=== PATIENT | male | born 1950 | race Caucasian/White ===

== ENCOUNTER 2021-05-31 14:17 | Observation (INO) | payer OTHER, MEDICARE, MEDICAID ==
[~2021-05-31] VITALS: Ht 172.7 cm; Wt 84.5 kg
[2021-05-31 14:51] LABS: BASOPHILS # (AUTO) 0.1 X10'3 (0-0.2); EOSINOPHILS # (AUTO) 0.2 X10'3 (0-0.9); EOSINOPHILS % (AUTO) 3.7 % (0-6); HEMATOCRIT 50.5 % (42.0-52.0); LYMPHOCYTES # (AUTO) 1.5 X10'3 (1.1-4.8); LYMPHOCYTES % (AUTO) 23.5 % (21-51); MEAN CORPUSCULAR HEMOGLOBIN 32.5 PG (27.0-31.0); MEAN CORPUSCULAR HGB CONC 33.7 g/dL (33.0-36.5); MEAN CORPUSCULAR VOLUME 96.6 FL (78-98); MEAN PLATELET VOLUME 8.3 FL (7.4-10.4); MONOCYTES % (AUTO) 16.3 % (2-12); NEUTROPHILS # (AUTO) 3.5 X10'3 (1.8-7.7); NEUTROPHILS % (AUTO) 55.5 % (42-75); PLATELET COUNT 271 X10'3 (140-440); RED BLOOD COUNT 5.23 X10'6 (4.70-6.10); RED CELL DISTRIBUTION WIDTH 13.7 % (11.5-14.5); WHITE BLOOD COUNT 6.3 X10'3 (4.5-11.0)
[2021-05-31] MEDS ORDERED: nitroGLYCERIN-Tridil 50MG/D5W 250 ML IV ONE (14:54)
[2021-05-31] MEDS ORDERED: LIDOcaine 1% (10mg/ml)w/preservative injection 20ml MDV ONE (14:55)
[2021-05-31] MEDS ORDERED: iohexol 350 MG/ML 50ML vial IV ONE (14:55)
[2021-05-31] MEDS ORDERED: verapamil 2.5 mg/ml inj IV ONE (14:55)
[2021-05-31] MEDS ORDERED: heparin 1,000unit/ml 10ml vial 10 ML ONE (14:55)
[2021-05-31] MEDS ORDERED: fentaNYL/PF 50MCG/1 ML 2ML syringe ONE (14:55)
[2021-05-31] MEDS ORDERED: midazolam 1 mg/ML 2ml injection ONE (14:55)
[2021-05-31] MEDS ORDERED: iohexol 350 MG/1 ML 200ml bottle ONE (14:55)
[2021-05-31 15:09] LABS: ALANINE AMINOTRANSFERASE 42 U/L (12-78); ALBUMIN 3.4 G/DL (3.4-5.0); ALKALINE PHOSPHATASE 140 IU/L (46-116); ANION GAP 11 (8-16); ASPARTATE AMINO TRANSFERASE 20 U/L (10-37); BILIRUBIN,TOTAL 0.7 MG/DL (0.1-1.0); BLOOD UREA NITROGEN 10 MG/DL (7-18); BUN/CREATININE RATIO 10.2 (5.4-32.0); CALCIUM 8.7 MG/DL (8.5-10.1); CHLORIDE 106 MMOL/L (99-107); CREATININE 0.98 MG/DL (0.60-1.10); GLUCOSE 146 MG/DL (70-104); SODIUM 142 MMOL/L (135-145); TOTAL CARBON DIOXIDE 25.4 MMOL/L (24-32); TOTAL PROTEIN 6.8 G/DL (6.4-8.2); eGFR 76 ML/MIN
--- NOTE | 2021-05-31 16:00 | NUR ---
assumed care of pt. denies chest pain at this time, awaiting bed assignment upstairs. no distress.
[2021-05-31] MEDS ORDERED: mag hydrox/Alum hydrox/simeth 30ml oral suspension PO PRN (17:15)
[2021-05-31] MEDS ORDERED: ondansetron/PF 4mg/2ml inj IV PRN (17:15)
[2021-05-31] MEDS ORDERED: nitroGLYCERIN 0.4mg SUBLingual tab SL PRN (17:15)
[2021-05-31] MEDS ORDERED: magnesium hydroxide 30ml (MOM) UD suspension PO PRN (17:15)
[2021-05-31] MEDS ORDERED: acetaminophen 325mg tablet PO PRN ×2 (17:15)
[2021-05-31] MEDS ORDERED: ACET-1074 PO (17:37)
[2021-05-31] MEDS ORDERED: FLUT16SP2 BOTHNARES (17:37)
[2021-05-31] MEDS ORDERED: ASCO-10 PO (17:37)
[2021-05-31] MEDS ORDERED: CYAN500T71 PO (17:37)
[2021-05-31] MEDS ORDERED: CARB15DR EACHEYE (17:37)
[2021-05-31] MEDS ORDERED: SAW1CAPS PO (17:37)
[2021-05-31] MEDS ORDERED: MULT400T14 PO (17:37)
[2021-05-31] MEDS ORDERED: UBID100C7 PO (17:37)
[2021-05-31] MEDS ORDERED: LACT1CAP65 PO (17:37)
[2021-05-31] MEDS ORDERED: QUE9P PO (17:37)
[2021-05-31] MEDS ORDERED: CHOL100062 PO (17:37)
[2021-05-31] MEDS ORDERED: IPRA4AER IH (17:37)
[2021-05-31] MEDS ORDERED: AMLO5TAB PO (17:37)
[2021-05-31] MEDS ORDERED: LISI20TA28 PO (17:37)
[2021-05-31] MEDS ORDERED: ATOR-2 PO (17:37)
[2021-05-31] MEDS ORDERED: IRON150C13 PO (17:37)
[2021-05-31] MEDS ORDERED: NITR0.4T48 SL (17:37)
[2021-05-31] MEDS ORDERED: APIX5TAB3 PO (17:37)
[2021-05-31] MEDS ORDERED: LOP12.5T PO (17:37)
[2021-05-31] MEDS ORDERED: ISOS60TA71 PO (17:37)
[2021-05-31 18:03] LABS: HEMOGLOBIN A1C 6.3 % (4.5-6.2)
--- NOTE | 2021-05-31 18:32 | NUR ---
telephone report to alejo renee.
[2021-05-31 19:00] VITALS: BP 118/64
--- NOTE | 2021-05-31 19:00 | NUR ---
Patient transfer for ER to [facility] in a stable condition , vital signs stable no complain of chest pain oriented to room bed in lower position call light within reach will continue to monitor and report changes
[2021-05-31] MEDS: docusate sod 100mg capsule PO SCH (19:33)
[2021-05-31 22:00] VITALS: BP 97/60
[2021-06-01] VITALS (7 sets, daily range): BP systolic 108–130; BP diastolic 60–68
[2021-06-01 03:06] LABS: ALBUMIN 3.1 G/DL (3.4-5.0); ANION GAP 5 (8-16); BLOOD UREA NITROGEN 12 MG/DL (7-18); BUN/CREATININE RATIO 12.8 (5.4-32.0); CALCIUM 8.3 MG/DL (8.5-10.1); CHLORIDE 107 MMOL/L (99-107); CHOL/HDL RATIO 2.4 (0.00-4.99); CHOLESTEROL 105 MG/DL (0-200); CREATININE 0.94 MG/DL (0.60-1.10); GLUCOSE 98 MG/DL (70-104); HDL CHOLESTEROL 44 MG/DL (35-60); LDL CHOLESTEROL 52 MG/DL (50-100); POTASSIUM 4.3 MMOL/L (3.5-5.1); SODIUM 141 MMOL/L (135-145); TRIGLYCERIDES 41 MG/DL (20-135); eGFR 79 ML/MIN
--- NOTE | 2021-06-01 04:50 | NUR ---
Heart monitor at bedside and to be monitored by telephone diaphragm assembler but no documentation of rhythm available for [facility] shift lead per the aide monitoring the tele's.
[2021-06-01 06:01] LABS: BASOPHILS % (AUTO) 0.6 % (0-1); EOSINOPHILS # (AUTO) 0.3 X10'3 (0-0.9); EOSINOPHILS % (AUTO) 4.6 % (0-6); HEMATOCRIT 48.1 % (42.0-52.0); HEMOGLOBIN 16.3 g/dl (14.0-17.9); LYMPHOCYTES # (AUTO) 1.4 X10'3 (1.1-4.8); LYMPHOCYTES % (AUTO) 20.5 % (21-51); MEAN CORPUSCULAR HEMOGLOBIN 32.7 PG (27.0-31.0); MEAN CORPUSCULAR HGB CONC 33.8 g/dL (33.0-36.5); MEAN CORPUSCULAR VOLUME 96.7 FL (78-98); MEAN PLATELET VOLUME 8.3 FL (7.4-10.4); NEUTROPHILS # (AUTO) 3.9 X10'3 (1.8-7.7); NEUTROPHILS % (AUTO) 59.3 % (42-75); PLATELET COUNT 251 X10'3 (140-440); RED BLOOD COUNT 4.98 X10'6 (4.70-6.10); RED CELL DISTRIBUTION WIDTH 13.5 % (11.5-14.5); WHITE BLOOD COUNT 6.6 X10'3 (4.5-11.0)
--- NOTE | 2021-06-01 06:37 | NUR ---
Problems reprioritized. Patient report given, questions answered & plan of care reviewed with Regla DENIS .
[2021-06-01] MEDS: docusate sod 100mg capsule PO SCH ×2 (08:21→20:00)
[2021-06-01] MEDS: aspirin 81mg, enteric-coated 1 TAB TABLET.DR PO SCH (08:21)
[2021-06-01] MEDS ORDERED: metoprolol tartrate 1mg/ml inj IV PRN (09:45)
[2021-06-01] MEDS ORDERED: nitroGLYCERIN 0.4mg SUBLingual tab SL PRN (09:45)
[2021-06-01] MEDS ORDERED: regadenoson 0.4mg/5ml syringe IV PRN (09:45)
[2021-06-01] MEDS ORDERED: aminophylline 500mg/20ml vial IV PRN (09:45)
[2021-06-02] VITALS (10 sets, daily range): BP systolic 95–139; BP diastolic 45–69
--- NOTE | 2021-06-02 05:15 | NUR ---
Pt a 70 years old male, admitted 06/01/2021, Full code, allergies to PCN, [place], Morphine, No restraints, No isolation. Pt presented to the hospital with chest pain that started this 06/01/2021. He woke up with chest pain and feeling a little bit short of breath. The patient's chest pain 3/, nonradiating. The patient denies any fever, chills, coughing, orthopnea or PND. He has a past medical history of coronary artery disease and multiple MIs, history of asthma, history of high blood pressure, paroxysmal atrial fibrillation, dyslipidemia, history of CVA. Currently, the patient is afebrile, AAO times 4, moves all extremities, follows all commands, denies CP at this time. Ambulates to bathroom without difficulty. HR SB 58, BP 108/64, pending Stress test 06/02/2021 in the AM. IV access RAC #20 f/p. RR 16 PO 98% RA, Breath sounds, clear, non labored, equal, symmetrical. Hypoactive bowel sounds, soft non tender, NPO past midnight for AM Stress test. LBM 06/01/2021. Heart healthy diet well tolerated. Voids freely via urinal. Skin intact. Pt remains safe. Continue to monitor.
--- NOTE | 2021-06-02 07:06 | NUR ---
Patient in room MED 317. I have received report from ADEEL BOSS, and had the opportunity to ask questions and assume patient care.
[2021-06-02 07:07] LABS: BASOPHILS # (AUTO) 0.1 X10'3 (0-0.2); BASOPHILS % (AUTO) 0.8 % (0-1); EOSINOPHILS # (AUTO) 0.3 X10'3 (0-0.9); EOSINOPHILS % (AUTO) 4.6 % (0-6); HEMATOCRIT 49.9 % (42.0-52.0); HEMOGLOBIN 16.8 g/dl (14.0-17.9); LYMPHOCYTES # (AUTO) 1.5 X10'3 (1.1-4.8); LYMPHOCYTES % (AUTO) 21.2 % (21-51); MEAN CORPUSCULAR HEMOGLOBIN 32.7 PG (27.0-31.0); MEAN CORPUSCULAR HGB CONC 33.7 g/dL (33.0-36.5); MEAN CORPUSCULAR VOLUME 97.1 FL (78-98); MEAN PLATELET VOLUME 8.2 FL (7.4-10.4); MONOCYTES % (AUTO) 14.7 % (2-12); NEUTROPHILS # (AUTO) 4.1 X10'3 (1.8-7.7); NEUTROPHILS % (AUTO) 58.7 % (42-75); PLATELET COUNT 258 X10'3 (140-440); RED BLOOD COUNT 5.14 X10'6 (4.70-6.10); RED CELL DISTRIBUTION WIDTH 13.6 % (11.5-14.5)
[2021-06-02 07:10] LABS: ANION GAP 2 (8-16); BLOOD UREA NITROGEN 12 MG/DL (7-18); BUN/CREATININE RATIO 13.8 (5.4-32.0); CALCIUM 8.4 MG/DL (8.5-10.1); CHLORIDE 108 MMOL/L (99-107); CREATININE 0.87 MG/DL (0.60-1.10); GLUCOSE 93 MG/DL (70-104); POTASSIUM 4.2 MMOL/L (3.5-5.1); SODIUM 139 MMOL/L (135-145); TOTAL CARBON DIOXIDE 29.4 MMOL/L (24-32); eGFR 87 ML/MIN
[2021-06-02] MEDS: docusate sod 100mg capsule PO SCH (08:00)
[2021-06-02] MEDS: aspirin 81mg, enteric-coated 1 TAB TABLET.DR PO SCH (11:27)
--- NOTE | 2021-06-02 16:02 | NUR ---
PT STABLE FOR DISCHARGE PER MD. DISCHARGE AND FOLLOW UP INSTRUCTIONS REVIEWED WITH PT. PIV REMOVED WITH TIP INTACT. TELE DISCONTINUED AND LEADS REMOVED. HAND OFF GIVEN TO ADEEL VIDAL AT THE CT. PT DISCHARGED TO CT. PT TRANSPORTED TO [facility] BY HOSPITAL STAFF. PT TRANSPORTED TO THE CT BY [facility].
== END 2021-06-02 15:50 ==
LOC: ER 14:17 → ED HOLD 17:17 → EDBEDREQ 18:16 → MED 3N 18:49
PROVIDERS: ADMIT Internal Medicine; ATTEND Internal Medicine
DX: R07.89 Other chest pain (principal); I25.10 Atherosclerotic heart disease of native coronary artery without angina pectoris; J44.9 Chronic obstructive pulmonary disease, unspecified; I48.0 Paroxysmal atrial fibrillation; E78.5 Hyperlipidemia, unspecified; I10 Essential (primary) hypertension; G47.33 Obstructive sleep apnea (adult) (pediatric); K21.9 Gastro-esophageal reflux disease without esophagitis; E11.9 Type 2 diabetes mellitus without complications; N40.0 Benign prostatic hyperplasia without lower urinary tract symptoms; I25.2 Old myocardial infarction; Z79.899 Other long term (current) drug therapy; Z86.73 Personal history of transient ischemic attack (TIA), and cerebral infarction without residual deficits; Z88.0 Allergy status to penicillin; Z79.01 Long term (current) use of anticoagulants; Z85.820 Personal history of malignant melanoma of skin; Z95.5 Presence of coronary angioplasty implant and graft
CPT/HCPCS: 36415; 71045; 78452; 80048; 80053; 80061; 83036; 83880; 84484; 85025; 87081; 93005; 93017; 93306; 96374; 99285; A9500; G0378; J0280; J1644; J2250; J3010; J3490; Q9967

== ENCOUNTER 2022-02-26 09:52 | Outpatient (CLI) | payer MEDICARE, MEDICAID ==
[~2022-02-26 09:52] MED LIST: ACET-1074 PO; AMLO5TAB PO; APIX5TAB3 PO; ASCO-10 PO; ATOR-2 PO; CARB15DR EACHEYE; CHOL100062 PO; CYAN500T71 PO; FLUT16SP2 BOTHNARES; IPRA4AER IH; IRON150C13 PO; ISOS60TA71 PO; LACT1CAP65 PO; LISI20TA28 PO; LOP12.5T PO; MULT400T14 PO; NITR0.4T48 SL; QUE9P PO; SAW1CAPS PO; UBID100C7 PO
[2022-02-26 10:15] LABS: TOTAL HEMOGLOBIN 17.8 G/dl (14.0-17.9)
== END 2022-02-26 23:59 | disposition home or self-care (01) ==
LOC: RT 09:52
PROVIDERS: ATTEND Internal Medicine Cardiovascular Disease
DX: R06.02 Shortness of breath (principal); J30.2 Other seasonal allergic rhinitis; Z79.899 Other long term (current) drug therapy
CPT/HCPCS: 85018; 94010; 94727; 94729

== ENCOUNTER 2022-09-24 08:46 | Day surgery (SDC) | payer MEDICARE, MEDICAID ==
[2022-09-19 09:23] LABS: BASOPHILS # (AUTO) 0.1 X10'3 (0-0.2); BASOPHILS % (AUTO) 0.8 % (0-1); EOSINOPHILS # (AUTO) 0.2 X10'3 (0-0.9); EOSINOPHILS % (AUTO) 3.2 % (0-6); HEMATOCRIT 52.7 % (42.0-52.0); HEMOGLOBIN 17.4 g/dl (14.0-17.9); LYMPHOCYTES % (AUTO) 15.1 % (21-51); MEAN CORPUSCULAR HEMOGLOBIN 32.1 PG (27.0-31.0); MEAN CORPUSCULAR VOLUME 97.4 FL (78-98); MONOCYTES # (AUTO) 0.8 X10'3 (0-0.9); MONOCYTES % (AUTO) 11.3 % (2-12); NEUTROPHILS # (AUTO) 4.7 X10'3 (1.8-7.7); NEUTROPHILS % (AUTO) 69.6 % (42-75); PLATELET COUNT 221 X10'3 (140-440); RED BLOOD COUNT 5.41 X10'6 (4.70-6.10); RED CELL DISTRIBUTION WIDTH 14.5 % (11.5-14.5); WHITE BLOOD COUNT 6.7 X10'3 (4.5-11.0)
[2022-09-19 09:33] LABS: ALBUMIN 3.6 G/DL (3.4-5.0); ANION GAP 6 (8-16); BLOOD UREA NITROGEN 13 MG/DL (7-18); BUN/CREATININE RATIO 13.7 (10.0-20.0); CALCIUM 8.6 MG/DL (8.5-10.1); CHLORIDE 108 MMOL/L (99-107); CREATININE 0.95 MG/DL (0.60-1.10); GLUCOSE 109 MG/DL (70-104); POTASSIUM 4.5 MMOL/L (3.5-5.1); SODIUM 144 MMOL/L (135-145); TOTAL CARBON DIOXIDE 29.9 MMOL/L (24-32); eGFR 78 ML/MIN
[2022-09-19 09:35] LABS: APTT 30 SECONDS (22-32)
[~2022-09-24] VITALS: Ht 172.7 cm; Wt 79.2 kg
[2022-09-24] VITALS (10 sets, daily range): BP systolic 92–128; BP diastolic 51–80
[2022-09-24] MEDS ORDERED: MONT-40 PO (09:30)
[2022-09-24] MEDS ORDERED: OMEG-133 PO (09:31)
[2022-09-24 09:54] LABS: BASOPHILS % (AUTO) 0.5 % (0-1); EOSINOPHILS # (AUTO) 0.2 X10'3 (0-0.9); EOSINOPHILS % (AUTO) 2.8 % (0-6); HEMATOCRIT 50.8 % (42.0-52.0); HEMOGLOBIN 17.2 g/dl (14.0-17.9); LYMPHOCYTES # (AUTO) 1.3 X10'3 (1.1-4.8); LYMPHOCYTES % (AUTO) 20.3 % (21-51); MEAN CORPUSCULAR HEMOGLOBIN 32.8 PG (27.0-31.0); MEAN CORPUSCULAR HGB CONC 33.8 g/dL (33.0-36.5); MEAN PLATELET VOLUME 8.7 FL (7.4-10.4); MONOCYTES # (AUTO) 0.9 X10'3 (0-0.9); NEUTROPHILS # (AUTO) 4.2 X10'3 (1.8-7.7); NEUTROPHILS % (AUTO) 63.4 % (42-75); PLATELET COUNT 223 X10'3 (140-440); RED BLOOD COUNT 5.24 X10'6 (4.70-6.10); RED CELL DISTRIBUTION WIDTH 14.3 % (11.5-14.5); WHITE BLOOD COUNT 6.6 X10'3 (4.5-11.0)
[2022-09-24] MEDS ORDERED: clindamycin-Cleocin 900mg/D5W 50 ML IV ONE (10:30)
[2022-09-24] MEDS ORDERED: fentaNYL/PF 50MCG/1 ML 2ML syringe ONE (10:59)
[2022-09-24] MEDS ORDERED: LIDOcaine 1% W/epiNEPHrine 1:100,000 20ml vial ONE ×2 (10:59→11:49)
[2022-09-24] MEDS ORDERED: clindamycin 600mg/D5W 50ml 50 ML IV ONE (10:59)
[2022-09-24] MEDS ORDERED: midazolam 1 mg/ML 2ml injection ONE ×2 (10:59→12:30)
[2022-09-24] MEDS ORDERED: iohexol 350 MG/ML 50ML vial IV ONE (11:57)
[2022-09-24] MEDS ORDERED: verapamil 2.5 mg/ml inj IV ONE ×2 (11:59→12:10)
[2022-09-24] MEDS ORDERED: acetaminophen 325mg tablet PO PRN (13:55)
[2022-09-24] MEDS ORDERED: vancomycin/NS 1 GM ADD-VANTAGE 250 ML X 1 DOSE IV ONE (15:00)
== END 2022-09-24 18:00 | disposition home or self-care (01) ==
LOC: SSTAY O 08:46
PROVIDERS: ATTEND Internal Medicine Cardiovascular Disease
DX: I49.5 Sick sinus syndrome (principal); E11.9 Type 2 diabetes mellitus without complications; I10 Essential (primary) hypertension; E78.5 Hyperlipidemia, unspecified; G47.30 Sleep apnea, unspecified; I48.0 Paroxysmal atrial fibrillation; Z79.899 Other long term (current) drug therapy; Z88.0 Allergy status to penicillin; Z88.5 Allergy status to narcotic agent
CPT/HCPCS: 33208; 36415; 71046; 80048; 82948; 85025; 85610; 85730; 93005; 99152; 99153; C1785; C1898; J2250; J3010; J3370; J3490; J7030; A4565; A6258; A6449; C1786; Q9967